=== PATIENT | male | born 1945 | race Caucasian/White ===

== ENCOUNTER → 2016-12-17 | Outpatient (REF) ==
[~2016-12-17] MED LIST: FLOMAX 0.40.4 MG/CAP PO; VOLTAREN GEL 1%1 TU TP; WELLBUTRIN 100100 MG PO; ZYLOPRIM 300MG300 MG PO
[2016-12-17 14:44] LABS: THYROID STIMULATING HORMONE 6.34 uIU/mL (0.465-4.680)
[2016-12-17 14:45] LABS: PSA-TOTAL 1.95 ng/mL (0-4)
== END ==
LOC: ZLAB.WCH 13:20
PROVIDERS: Medical Genetics Clinical Genetics (M.D.)
DX: Z01.89 Encounter for other specified special examinations (principal)
CPT/HCPCS: G0103

== ENCOUNTER → 2017-05-21 | Outpatient (REF) | LOC: ZLAB.WCH 18:20 | DX: Z01.89 Encounter for other specified special examinations (principal) ==

== ENCOUNTER 2023-01-30 15:26 | Outpatient (RCR) | payer MEDICARE | END 2023-01-30 15:27 | LOC: MKS.ESL.PT 15:26 | DX: G60.9 Hereditary and idiopathic neuropathy, unspecified (principal) ==

== ENCOUNTER 2023-01-30 15:27 | Outpatient (RCR) | payer MEDICARE | END 2023-01-30 15:28 | LOC: MKS.ESL.PT 15:27 | DX: G60.9 Hereditary and idiopathic neuropathy, unspecified (principal) ==